=== PATIENT | male | born 1960 | race American Indian/Alaskan Native ===

== ENCOUNTER 2016-12-11 15:58 | Emergency (ER) | payer MEDICAID ==
[2016-12-11 15:59] VITALS: BMI 23.0
[2016-12-11 16:14] VITALS: TEMP 98.6; O2SAT 99
--- NOTE | 2016-12-11 16:35 | ED PDOC ---
Arrival/HPI - General Chief Complaint: Dental Pain Time Seen by Provider: 12/11/16 16:16 Historian: Patient - History of Present Illness Narrative History of Present Illness (Text): 12/11/16 16:30 55-year-old male presents today with left-sided dental pain. Patient states has been having pain for the past few days. Patient states he hasn't seen a dentist in a while. He denies any recent trauma or injury. Denies fevers or chills. Patient complaining of pain to the left upper and lower teeth into the left jaw. Patient denies trismus or drooling. Denies fevers or chills. No other complaints Time/Duration: Other (2 days) Symptom Onset: Gradual Symptom Course: Worsening Quality: Aching, Throbbing Severity Level: 6 Past Medical History - Provider Review Nursing Documentation Reviewed: Yes - Travel History Have you recently traveled outside [place] w/in the past 3 mons?: No - Tetanus Immunization Tetanus Immunization: Unknown - Cardiac Hx Cardiac Disorders: No - Pulmonary Hx Respiratory Disorders: No - Neurological Hx Neurological Disorder: No - HEENT Hx HEENT Disorder: No - Renal Hx Renal Disorder: No - Endocrine/Metabolic Hx Endocrine Disorders: No - Hematological/Oncological Hx Blood Disorders: No - Integumentary Hx Dermatological Disorder: No - Musculoskeletal/Rheumatological Hx Musculoskeletal Disorders: No - Gastrointestinal Hx Gastrointestinal Disorders: No - Genitourinary/Gynecological Hx Genitourinary Disorders: No - Psychiatric Hx Psychophysiologic Disorder: No Hx Substance Use: No - Anesthesia Hx Anesthesia: No Family/Social History - Physician Review Nursing Documentation Reviewed: Yes Family/Social History: Unknown Family HX Smoking Status: Light Smoker < 10 Cigarettes Daily Hx Alcohol Use: No Hx Substance Use: No Allergies/Home Meds Allergies/Adverse Reactions: Allergies No Known Allergies Allergy (Verified 12/11/16 16:11) Review of Systems - Review of Systems Constitutional: absent: Fatigue, Fevers ENT: Other (toothache). absent: Sore Throat, Sinus Congestion Respiratory: absent: SOB, Cough Cardiovascular: absent: Chest Pain, Palpitations Gastrointestinal: absent: Abdominal Pain, Nausea, Vomiting Skin: absent: Rash, Pruritis Neurological: absent: Headache, Dizziness Physical Exam Vital Signs Reviewed: Yes Vital Signs Temp Pulse Resp BP Pulse Ox 12/11/16 16:11 98.6 F 73 16 133/81 99 Temperature: Afebrile Blood Pressure: Normal Pulse: Regular Respiratory Rate: Normal Appearance: Positive for: Well-Appearing, Non-Toxic, Comfortable Pain Distress: None Mental Status: Positive for: Alert and Oriented X 3 - Systems Exam Head: Present: Atraumatic Conjunctiva: Present: Normal Ears: Present: Normal Mouth: Present: Moist Mucous Membranes, Normal Lips, Normal Tounge. No: Drooling, Trismus, Normal Teeth (poor dentition, multiple left upper dental fractures, + dental caries. ) Pharnyx: Present: Normal. No: ERYTHEMA, EXUDATE, TONSILS ENLARGED, Peritonsilar Swelling, Uvular Deviation, Muffled/Hoarse Voice, Strider, Soft Palate/Uvular Edema Nose (External): Present: Atraumatic Nose (Internal): Present: Normal Inspection Neck: Present: Normal Range of Motion Respiratory/Chest: Present: Clear to Auscultation, Good Air Exchange. No: Respiratory Distress, Accessory Muscle Use Cardiovascular: Present: Regular Rate and Rhythm, Normal S1, S2. No: Murmurs Upper Extremity: Present: Normal ROM Lower Extremity: Present: Normal ROM Neurological: Present: GCS=15, Speech Normal Skin: Present: Warm, Dry, Normal Color. No: Rashes Psychiatric: Present: Alert, Oriented x 3 Medical Decision Making ED Course and Treatment: 12/11/16 16:38 Patient is nontoxic well-appearing in no distress with stable vital signs No trismus or drooling, moist mucous membranes Amoxicillin Toradol tramadol Patient reassessment: Patient is feeling better after medications. I advised follow-up with the dentist within the next 2 days. I advised immediate return is symptoms worsen persist or if new concerning symptoms develop Patient verbalizes understanding of discharge instructions and need for immediate followup. Impression: Toothache Motrin every 6 hours as needed for pain Amoxicillin 1 tablet 3 times daily x 10 days tramadol; 1 tablet every 6 hours as needed for moderate to severe pain; may cause drowsiness Follow-up with the dentist within the next 2 days Follow up with the primary care physician within the next 2 days. Return immediately if symptoms worsen persist or if new concerning symptoms develop Disposition/Present on Arrival - Present on Arrival Any Indicators Present on Arrival: No History of DVT/PE: No History of Uncontrolled Diabetes: No Urinary Catheter: No History of Decub. Ulcer: No History Surgical Site Infection Following: None - Disposition Have Diagnosis and Disposition been Completed?: Yes Diagnosis: Toothache, Dental caries Disposition: HOME/ ROUTINE Disposition Time: 16:28 Patient Plan: Discharge Condition: GOOD Discharge Instructions (ExitCare): Toothache (ED), Dental Caries (ED) Additional Instructions: Motrin every 6 hours as needed for pain Amoxicillin 1 tablet 3 times daily x 10 days tramadol; 1 tablet every 6 hours as needed for moderate to severe pain; may cause drowsiness Follow-up with the dentist within the next 2 days Follow up with the primary care physician within the next 2 days. Return immediately if symptoms worsen persist or if new concerning symptoms develop Prescriptions: Amoxicillin 500 mg PO TID #30 tab Ibuprofen [Motrin] 600 mg PO Q6H PRN #20 tab PRN Reason: pain/fever reduction traMADol [Ultram] 50 mg PO Q6H PRN #8 tab PRN Reason: moderate to severe pain Referrals: Jose Tenorio DMD [Non-Staff] - Follow up with primary Forms: WORK NOTE
[2016-12-11 17:07] VITALS: BP 134/77; PULSE 65; RESP 17
== END 2016-12-11 17:08 | disposition home or self-care (01) ==
LOC: ED 15:58
DX: K02.9 Dental caries, unspecified (principal)
CPT/HCPCS: 96372; 99282; J1885

== ENCOUNTER 2017-03-15 04:58 | Emergency (ER) | payer MEDICAID ==
[2017-03-15 04:58] VITALS: BMI 23.0
[2017-03-15 05:18] VITALS: RESP 18; TEMP 98.3
--- NOTE | 2017-03-15 05:27 | ED PDOC ---
Arrival/HPI - General Chief Complaint: Back Pain Time Seen by Provider: 03/15/17 04:59 Historian: Patient - History of Present Illness Narrative History of Present Illness (Text): 03/15/17 05:23 56 year old male, with no significant past medical history presents to the emergency department complaining of lower back pain. 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 Patient denies any fever, chills, chest pain, shortness of breath, nausea, vomiting, diarrhea, urinary symptoms, neck pain, headache, dizziness, or any other complaints. Time/Duration: Other Symptom Onset: Sudden Symptom Course: Unchanged Activities at Onset: Light Context: Work Past Medical History - Provider Review Nursing Documentation Reviewed: Yes - Tetanus Immunization Tetanus Immunization: Unknown - Cardiac Hx Cardiac Disorders: No - Pulmonary Hx Respiratory Disorders: No - Neurological Hx Neurological Disorder: No - HEENT Hx HEENT Disorder: No - Renal Hx Renal Disorder: No - Endocrine/Metabolic Hx Endocrine Disorders: No - Hematological/Oncological Hx Blood Disorders: No - Integumentary Hx Dermatological Disorder: No - Musculoskeletal/Rheumatological Hx Musculoskeletal Disorders: No - Gastrointestinal Hx Gastrointestinal Disorders: No - Genitourinary/Gynecological Hx Genitourinary Disorders: No - Psychiatric Hx Psychophysiologic Disorder: No Hx Substance Use: No - Anesthesia Hx Anesthesia: No Family/Social History - Physician Review Nursing Documentation Reviewed: Yes Family/Social History: No Known Family HX Smoking Status: Light Smoker < 10 Cigarettes Daily Hx Alcohol Use: No Hx Substance Use: No Allergies/Home Meds Allergies/Adverse Reactions: Allergies No Known Allergies Allergy (Verified 03/15/17 05:14) Review of Systems - Physician Review All systems were reviewed & negative as marked: Yes - Review of Systems Constitutional: absent: Fevers, Other (Chills) Respiratory: absent: SOB Cardiovascular: absent: Chest Pain Gastrointestinal: absent: Diarrhea, Nausea, Vomiting Genitourinary Male: absent: Dysuria, Frequency, Hematuria Musculoskeletal: Back Pain (Lower back pain). absent: Neck Pain Neurological: absent: Headache, Dizziness Physical Exam Vital Signs Reviewed: Yes Vital Signs Temp Pulse Resp Pulse Ox 03/15/17 05:14 98.3 F 77 18 97 Temperature: Afebrile Pulse: Regular Respiratory Rate: Normal Appearance: Positive for: Well-Appearing, Non-Toxic, Comfortable Pain Distress: None Mental Status: Positive for: Alert and Oriented X 3 - Systems Exam Head: Present: Atraumatic, Normocephalic Pupils: Present: PERRL Extroacular Muscles: Present: EOMI Conjunctiva: Present: Normal Mouth: Present: Moist Mucous Membranes Neck: Present: Normal Range of Motion Respiratory/Chest: Present: Clear to Auscultation, Good Air Exchange. No: Respiratory Distress, Accessory Muscle Use Cardiovascular: Present: Regular Rate and Rhythm, Normal S1, S2. No: Murmurs Abdomen: Present: Normal Bowel Sounds. No: Tenderness, Distention, Peritoneal Signs Back: Present: Normal Inspection, Paraspinal Tenderness (Lower paraspinal tenderness). No: Midline Tenderness, Other (- Dorsal Spinal Tenderness) Upper Extremity: Present: Normal Inspection. No: Cyanosis, Edema Lower Extremity: Present: Normal Inspection. No: Edema Neurological: Present: GCS=15, CN II-XII Intact, Speech Normal Skin: Present: Warm, Dry, Normal Color. No: Rashes Psychiatric: Present: Alert, Oriented x 3, Normal Insight, Normal Concentration Medical Decision Making ED Course and Treatment: 03/15/17 05:23 Impression: 56 year old male present complaining of lower back pain that began after heavy lifting at work. Plan: -- Flexeril -- Toradol -- Reassess and disposition Progress Notes: - Medication Orders Current Medication Orders: Discontinued Medications Cyclobenzaprine HCl (Flexeril) 10 mg PO ONCE ONE Stop: 03/15/17 05:24 Last Admin: 03/15/17 05:58 Dose: 10 mg Ketorolac Tromethamine (Toradol) 60 mg IM ONCE ONE Stop: 03/15/17 05:24 Last Admin: 03/15/17 05:58 Dose: 60 mg - Scribe Statement The provider has reviewed the documentation as recorded by the Angelicaibdemond Montoya All medical record entries made by the Angelicaibdemond were at my direction and personally dictated by me. I have reviewed the chart and agree that the record accurately reflects my personal performance of the history, physical exam, medical decision making, and the department course for this patient. I have also personally directed, reviewed, and agree with the discharge instructions and disposition. Disposition/Present on Arrival - Present on Arrival Any Indicators Present on Arrival: No History of DVT/PE: No History of Uncontrolled Diabetes: No Urinary Catheter: No History of Decub. Ulcer: No History Surgical Site Infection Following: None - Disposition Have Diagnosis and Disposition been Completed?: Yes Diagnosis: Lumbar back sprain, Muscle strain, Muscle spasm of back Disposition: HOME/ ROUTINE Disposition Time: 06:03 Patient Plan: Discharge Patient Problems: Current Active Problems Problem Status Onset Lumbar back sprain Acute Muscle spasm of back Acute Muscle strain Acute Condition: GOOD Discharge Instructions (ExitCare): Muscle Strain (ED), Muscle Spasm (ED), Back Pain (ED) Additional Instructions: Rest/no strenuous physical activity/no heavy lifting/meds as prescribed/follow up with your doctor this week Prescriptions: Cyclobenzaprine [Cyclobenzaprine HCl] 10 mg PO TID PRN #15 tab PRN Reason: Muscle Spasm Naproxen [Naprosyn] 500 mg PO BID PRN #14 tab PRN Reason: Pain Naproxen [Naprosyn] 500 mg PO BID PRN #14 tab PRN Reason: Pain Forms: [facility] (Armenian), WORK NOTE
[2017-03-15 06:25] VITALS: BP 106/69; PULSE 75; O2SAT 99
== END 2017-03-15 06:24 | disposition home or self-care (01) ==
LOC: ED 04:58
DX: S33.5XXA Sprain of ligaments of lumbar spine, initial encounter (principal); X50.0XXA Overexertion from strenuous movement or load, initial encounter; Y93.89 Activity, other specified; Y92.89 Other specified places as the place of occurrence of the external cause; Y99.8 Other external cause status
CPT/HCPCS: 96372; 99282; J1885

== ENCOUNTER 2017-07-28 12:17 | Inpatient (IN) | payer MEDICAID ==
[2017-07-28 12:30] VITALS: BMI 20.9
[2017-07-28] MEDS ORDERED: Morphine 4 mg/ml ISec IVP STA ×2 (12:36→18:31)
[2017-07-28] MEDS ORDERED: Sodium Chloride 0.9% 1,000 ML IV STA (12:36)
--- NOTE | 2017-07-28 12:39 | ED PDOC ---
Arrival/HPI - General Time Seen by Provider: 07/28/17 12:25 Historian: Patient, Spouse - History of Present Illness Narrative History of Present Illness (Text): 07/28/17 12:34 A 56 year old male with no significant past medical history presents to the emergency department complaining of chest pain, vomiting, and dry heaves. The patient states that at 19:00 last night, after he ate rice and beans, he began to experience dry heaves and vomiting. He notes that this morning he began to experience the chest pain. As per the , she became worried and called EMS. The patient admits to smoking and ETOH use. The patient denies fevers, chills, headache, dizziness, shortness of breath, dyspnea on exertion, cough, abdominal pain, diarrhea, back pain, neck pain, urinary/bowel changes, or any other complaint. Time/Duration: Other (Last night) Symptom Onset: Sudden Symptom Course: Unchanged Activities at Onset: Rest, Light Context: Home Past Medical History - Provider Review Nursing Documentation Reviewed: Yes - Tetanus Immunization Tetanus Immunization: Unknown - Cardiac Hx Cardiac Disorders: No - Pulmonary Hx Respiratory Disorders: No - Neurological Hx Neurological Disorder: No - HEENT Hx HEENT Disorder: No - Renal Hx Renal Disorder: No - Endocrine/Metabolic Hx Endocrine Disorders: No - Hematological/Oncological Hx Blood Disorders: No - Integumentary Hx Dermatological Disorder: No - Musculoskeletal/Rheumatological Hx Musculoskeletal Disorders: No - Gastrointestinal Hx Gastrointestinal Disorders: No - Genitourinary/Gynecological Hx Genitourinary Disorders: No - Psychiatric Hx Psychophysiologic Disorder: No Hx Substance Use: No - Anesthesia Hx Anesthesia: No Family/Social History - Physician Review Nursing Documentation Reviewed: Yes Family/Social History: No Known Family HX Smoking Status: Light Smoker < 10 Cigarettes Daily Hx Alcohol Use: No Hx Substance Use: No Allergies/Home Meds Allergies/Adverse Reactions: Allergies No Known Allergies Allergy (Verified 03/15/17 05:14) Review of Systems - Physician Review All systems were reviewed & negative as marked: Yes - Review of Systems Constitutional: absent: Fevers, Night Sweats Respiratory: absent: SOB, Cough Cardiovascular: absent: Chest Pain, DANIELLE Gastrointestinal: Nausea, Vomiting. absent: Abdominal Pain, Stool Changes Genitourinary Male: absent: Urinary Output Changes Musculoskeletal: absent: Back Pain, Neck Pain Neurological: absent: Headache, Dizziness Physical Exam Vital Signs Reviewed: Yes Vital Signs Temp Pulse Resp BP Pulse Ox 07/28/17 15:05 64 19 144/86 98 07/28/17 12:27 98.3 F 63 18 147/94 H 100 Temperature: Afebrile Blood Pressure: Hypertensive Pulse: Regular Respiratory Rate: Normal Appearance: Positive for: Well-Appearing, Non-Toxic, Comfortable Pain Distress: None Mental Status: Positive for: Alert and Oriented X 3 - Systems Exam Head: Present: Atraumatic, Normocephalic Pupils: Present: PERRL Extroacular Muscles: Present: EOMI Conjunctiva: Present: Normal Mouth: Present: Moist Mucous Membranes Neck: Present: Normal Range of Motion Respiratory/Chest: Present: Clear to Auscultation, Good Air Exchange. No: Respiratory Distress, Accessory Muscle Use Cardiovascular: Present: Regular Rate and Rhythm, Normal S1, S2. No: Murmurs Abdomen: Present: Normal Bowel Sounds. No: Tenderness, Distention, Peritoneal Signs Back: Present: Normal Inspection Upper Extremity: Present: Normal Inspection. No: Cyanosis, Edema Lower Extremity: Present: Normal Inspection. No: Edema Neurological: Present: GCS=15, CN II-XII Intact, Speech Normal Skin: Present: Warm, Dry, Normal Color. No: Rashes Psychiatric: Present: Alert, Oriented x 3, Normal Insight, Normal Concentration Medical Decision Making ED Course and Treatment: 07/28/17 12:40 Impression: A 56 year old male presents to the emergency department complaining of dry heaving, vomiting and chest pain. Plan: -- EKG -- Chest X-ray -- Labs -- Morphine, Zofran, and IV Fluids -- Reassess and disposition Prior Visits: Notes and results from previous visits were reviewed. Patient was last seen in the emergency department on 03/15/17. The patient was seen in the emergency department for a complaint of lower back pain. The patient was discharged home. Progress Notes: EKG: Ordered, reviewed, and independently interpreted the EKG. Rate : 68 BPM Rhythm : NSR Interpretation : Left axis deviation. Old septal infarct. CHEST X-RAY Dictator : Valentina Tran MD Report Date : 07/28/2017 13:03:25 IMPRESSION: No active pulmonary disease. 07/28/17 17:36 All tests performed are normal. Patient states he is feeling better but complains of nausea. Zofran administered. After 15 minutes patient attempted to drink water and states he felt incredible esophageal pain. Will admit to hospitalist for possible GI evaluation and continued IV hydration. Dr. Kody hernández. 07/28/17 18:[address] Gates, Admit to his service - Lab Interpretations Lab Results: 07/28/17 13:35 07/28/17 14:05 Lab Results 07/28/17 17:00: Urine Opiates Screen Positive H, Urine Methadone Screen Negative , Ur Barbiturates Screen Negative, Ur Phencyclidine Scrn Negative, Ur Amphetamines Screen Negative, U Benzodiazepines Scrn Negative, U Oth Cocaine Metabols Negative, U Cannabinoids Screen Positive H 07/28/17 16:15: PT 13.2 H, INR 1.15 H 07/28/17 14:05: Alcohol, Quantitative < 10 07/28/17 14:05: Sodium 146, Potassium 3.9, Chloride 106, Carbon Dioxide 28, Anion Gap 16, BUN 10, Creatinine 0.8, Est GFR ( Amer) > 60, Est GFR (Non- Af Amer) > 60, Random Glucose 124 H, Calcium 9.9, Total Bilirubin 0.6, Direct Bilirubin 0.5 H, AST 30, ALT 20, Alkaline Phosphatase 74, Lactate Dehydrogenase 600, Total Creatine Kinase 187, Troponin I < 0.01, Total Protein 9.4 H, Albumin 4.7, Globulin 4.8, Albumin/Globulin Ratio 1.0 L, Lipase 67 07/28/17 13:35: WBC 10.3 D, RBC 4.89, Hgb 14.8, Hct 43.6, MCV 89.2, MCH 30.3, MCHC 33.9, RDW 12.2, Plt Count 192, MPV 11.1 H, Gran % 81.0 H, Lymph % (Auto) 14.7 L, [place] % (Auto) 4.2, Eos % (Auto) 0.0 L, Baso % (Auto) 0.1, Gran # 8.38 H , Lymph # 1.5, [place] # 0.4, Eos # 0.0, Baso # 0.01 I have reviewed the lab results: Yes - RAD Interpretation Radiology Orders: 07/28/17 12:36 CXR [CHEST PORTABLE] [RAD] Stat - EKG Interpretation Interpreted by ED Physician: Yes Type: 12 lead EKG - Medication Orders Current Medication Orders: Discontinued Medications Sodium Chloride (Sodium Chloride 0.9%) 1,000 mls @ 999 mls/hr IV .Q1H1M STA Stop: 07/28/17 13:36 Last Admin: 07/28/17 14:10 Dose: 999 mls/hr eMAR Start Stop Document 07/28/17 14:10 HI (Rec: 07/28/17 14:10 HI [id number]) Intravenous Solution Start Date 07/28/17 Start Time 14:10 Morphine Sulfate (Morphine) 4 mg IVP STAT STA Stop: 07/28/17 12:37 Last Admin: 07/28/17 14:10 Dose: 4 mg MAR Pain Assessment Document 07/28/17 14:10 HI (Rec: 07/28/17 14:10 HI [id number]) Pain Reassessment Is this a pain reassessment? No Presence of Pain Presence of Pain Yes Location Pain Location Body Site Abdomen IVP Administration Document 07/28/17 14:10 HI (Rec: 07/28/17 14:10 HI [id number]) Charges for Administration # of IVP Administrations 1 Re-Assess: MAR Pain Assessment Document 07/28/17 15:10 HI (Rec: 07/28/17 17:09 HI [id number]) Pain Reassessment Is this a pain reassessment? Yes Sleep Is patient sleeping during reassessment? No Presence of Pain Presence of Pain No Ondansetron HCl (Zofran Inj) 4 mg IVP STAT STA Stop: 07/28/17 12:37 Last Admin: 07/28/17 14:10 Dose: 4 mg IVP Administration Document 07/28/17 14:10 HI (Rec: 07/28/17 14:10 HI [id number]) Charges for Administration # of IVP Administrations 1 Ondansetron HCl (Zofran Odt) 8 mg PO STAT STA Stop: 07/28/17 16:55 Last Admin: 07/28/17 17:09 Dose: 8 mg - Scribe Statement The provider has reviewed the documentation as recorded by the Thaddeus Singh Provider Scribe Attestation: All medical record entries made by the Scribe were at my direction and personally dictated by me. I have reviewed the chart and agree that the record accurately reflects my personal performance of the history, physical exam, medical decision making, and the department course for this patient. I have also personally directed, reviewed, and agree with the discharge instructions and disposition. Disposition/Present on Arrival - Present on Arrival Any Indicators Present on Arrival: No History of DVT/PE: No History of Uncontrolled Diabetes: No Urinary Catheter: No History Surgical Site Infection Following: None - Disposition Have Diagnosis and Disposition been Completed?: Yes Diagnosis: Chest pain, Esophagitis Disposition: HOME/ ROUTINE Disposition Time: 18:11 Patient Plan: Admission, Telemetry Condition: IMPROVED Discharge Instructions (ExitCare): Chest Pain (ED) Referrals: PCP,NO [Primary Care Provider] - Follow up with primary
--- NOTE | 2017-07-28 13:05 | RAD ---
HISTORY: Chest Pain COMPARISON: No prior. FINDINGS: LUNGS: The lungs are well inflated and clear. PLEURA: No significant pleural effusion identified, no pneumothorax apparent. CARDIOVASCULAR: Normal. OSSEOUS STRUCTURES: No significant abnormalities. VISUALIZED UPPER ABDOMEN: Normal. OTHER FINDINGS: None. IMPRESSION: No active pulmonary disease.
[2017-07-28 14:04] LABS: BASO # 0.01 K/mm3 (0.0-2.0); BASO % 0.1 % (0.0-3.0); GRAN # 8.38 (1.4-6.5); HEMOGLOBIN 14.8 g/dL (14.0-18.0); LYMPH # 1.5 (1.2-3.4); LYMPH % 14.7 % (22.0-35.0); MEAN CELL VOLUME 89.2 fl (80.0-105.0); MEAN CORPUSCULAR HEMOGLOBIN 30.3 pg (25.0-35.0); MEAN CORPUSCULAR HGB CONC 33.9 g/dl (31.0-37.0); MEAN PLATELET VOLUME 11.1 fl (7.0-11.0); MONO # 0.4 (0.1-0.6); MONO % 4.2 % (1.0-6.0); RBC 4.89 10^6/uL (3.5-6.1); RED CELL DISTRIBUTION WIDTH 12.2 % (11.5-14.5); WHITE BLOOD COUNT 10.3 10^3/ul (4.5-11.0)
[2017-07-28 14:33] LABS: ALBUMIN 4.7 g/dL (3.0-4.8); ALT/SGPT 20 U/L (7-56); AST/SGOT 30 U/L (17-59); BLOOD UREA NITROGEN 10 mg/dL (7-21); CALCIUM 9.9 mg/dL (8.4-10.5); GFR AFRICAN-AMERICAN > 60; GFR NON-AFRICAN AMERICAN > 60; LIPASE 67 U/L (23-300)
[2017-07-28 14:40] LABS: BILIRUBIN,DIRECT 0.5 mg/dL (0.0-0.4)
[2017-07-28 14:44] LABS: TROPONIN I < 0.01 ng/mL
[2017-07-28 16:39] LABS: INR 1.15 (0.93-1.08); PROTHROMBIN TIME 13.2 SECONDS (9.4-12.5)
[2017-07-28 17:49] LABS: BARBITURATES, UR NEGATIVE (NEGATIVE); BENZODIAZEPINES, UR NEGATIVE (NEGATIVE); PHENCYCLIDINE, UR NEGATIVE (NEGATIVE)
[2017-07-28 17:53] LABS: OPIATES, UR POSITIVE (NEGATIVE)
[2017-07-28] MEDS ORDERED: Morphine 2 mg/ml ISec IVP PRN (18:43)
--- NOTE | 2017-07-28 18:59 | CP.PCM.HP ---
History of Present Illness - History of Present Illness History of Present Illness: CC: Intractable nausea, vomiting; chest pain Pt is a 56 yo M with no significant past medical history presents to [facility] due to intractable nausea and vomiting for the past day. Pt states he ate rice and beans last night around 7 pm when his symptoms began and has not been able to tolerate any oral intake since then. Pt has had multiple NBNB episodes of vomiting since last night. Pt states that his family ate the same meal and have been asymptomatic. Pt denies any recent sick contacts. Pt states he also has epigastric pain that is sharp and radiates to his sternum and right side of his chest. Pt denies any diarrhea or constipation. Pt denies any past occurrences. pt also complains of alternating fever and chills. Pt denied shortness of breath , headache, dizziness, dysuria, polyuria, hemoptysis, melena, or hematochezia. PMH: denied PSH: denied All: NKDA FHx: Non-contributory SH: 2 packs/week for past 30 yrs, social EtOH use, denied illicit drug use PMD: None Present on Admission - Present on Admission Any Indicators Present on Admission: No Review of Systems - Review of Systems Review of Systems: 12 point ROS reviewed and is negative other than what is stated in HPI. Past Patient History - Tetanus Immunizations Tetanus Immunization: Unknown - Past Social History Smoking Status: Light Smoker < 10 Cigarettes Daily - CARDIAC Hx Cardiac Disorders: No - PULMONARY Hx Respiratory Disorders: No - NEUROLOGICAL Hx Neurological Disorder: No - HEENT Hx HEENT Problems: No - RENAL Hx Chronic Kidney Disease: No - ENDOCRINE/METABOLIC Hx Endocrine Disorders: No - HEMATOLOGICAL/ONCOLOGICAL Hx Blood Disorders: No - INTEGUMENTARY Hx Dermatological Problems: No - MUSCULOSKELETAL/RHEUMATOLOGICAL Hx Musculoskeletal Disorders: No - GASTROINTESTINAL Hx Gastrointestinal Disorders: No - GENITOURINARY/GYNECOLOGICAL Hx Genitourinary Disorders: No - PSYCHIATRIC Hx Psychophysiologic Disorder: No Hx Substance Use: No - SURGICAL HISTORY Hx Surgeries: No - ANESTHESIA Hx Anesthesia: No Meds Allergies/Adverse Reactions: Allergies Allergy/AdvReac Type Severity Reaction Status Date / Time No Known Allergies Allergy Verified 03/15/17 05:14 Physical Exam - Constitutional Appears: In Acute Distress - Head Exam Head Exam: NORMAL INSPECTION - Eye Exam Eye Exam: Normal appearance - ENT Exam ENT Exam: Mucous Membranes Dry - Neck Exam Neck exam: Positive for: Normal Inspection - Respiratory Exam Respiratory Exam: Clear to Auscultation Bilateral. absent: Rales, Rhonchi, Wheezes, Respiratory Distress - Cardiovascular Exam Cardiovascular Exam: RRR, +S1, +S2. absent: Diastolic murmur, Gallop, Rubs, Systolic Murmur - GI/Abdominal Exam GI & Abdominal Exam: Guarding, Tenderness. absent: Distended, Rebound Additional comments: LLQ, epigastric - Extremities Exam Extremities exam: Positive for: normal inspection - Back Exam Back exam: NORMAL INSPECTION - Neurological Exam Neurological exam: Alert, Oriented x3 - Psychiatric Exam Psychiatric exam: Normal Affect, Normal Mood - Skin Skin Exam: Dry, Intact, Normal Color, Warm Results - Vital Signs Recent Vital Signs: Last Vital Signs Temp 98.3 F 07/28/17 12:27 Pulse 64 07/28/17 15:05 Resp 19 07/28/17 15:05 BP 144/86 07/28/17 15:05 Pulse Ox 98 07/28/17 15:05 - Labs Result Diagrams: 07/28/17 13:35 07/28/17 14:05 Assessment & Plan - Assessment and Plan (Free Text) Assessment: 56 yo M with no significant past medical history admitted for evaluation and treatment for intractable nausea/vomiting and CP r/o ACS. Plan: 1. Intractable nausea/vomiting - Afebrile, no leukocytosis - CT abdomen ordered - UDS positive for opiates and marijuana - Possibly 2/2 illicit drug withdrawal - Ativan 1q6 prn and tylenol for pain - Zofran for nausea - NPO - NS at 100 ml/hr 2. CP r/o ACS - Likely 2/2 intractable vomiting - CXR negative - EKG shows NSR, LAD, septal infarct age undetermined - Troponin negative x1, trend x2 - TSH low-normal - F/u Lipids, A1c, Free T4 GI/DVT PPx - Protonix - Lovenox Pt discussed in detail with Dr. Gonzalez. Alphonso Gonzalez, PGY1
[2017-07-28] MEDS ORDERED: Morphine 2 mg/ml ISec ONE (19:29)
[2017-07-28] MEDS: Sodium Chloride 0.9% 1,000 ML IV SCH (19:34)
--- NOTE | 2017-07-28 22:36 | CT ---
EXAM: CT Abdomen and Pelvis Without Intravenous Contrast EXAM DATE/TIME: 07/28/2017 7:46 PM CLINICAL HISTORY: 56 years old, male; Pain; Abdominal pain TECHNIQUE: Axial computed tomography images of the abdomen and pelvis without intravenous contrast. All CT scans at this facility use one or more dose reduction techniques, viz.: automated exposure control; ma/kV adjustment per patient size (including targeted exams where dose is matched to indication; i.e. head); or iterative reconstruction technique. Coronal and sagittal reformatted images were created and reviewed. COMPARISON: There are no prior studies for comparison. FINDINGS: Limitations: Lack of intravenous contrast limits evaluation of the abdomen and pelvis. Lower thorax: Heart size is normal. There is dependent atelectasis at the lung bases. ABDOMEN: Liver: unremarkable Gallbladder and bile ducts: unremarkable Pancreas: unremarkable Spleen: unremarkable Adrenals: unremarkable Kidneys and ureters: There is a small nonobstructing left renal stone. Kidneys and ureters are otherwise unremarkable. Stomach and bowel: Stomach is incompletely distended which accentuates the gastric wall.Bowel rotation is normal. There are mildly distended small bowel loops in the left upper quadrant. There is a small amount of fluid and air in remaining small bowel. There is no obstruction. Ileocecal region is unremarkable.Appendix and terminal ileum are unremarkable. Colon is incompletely distended which limits evaluation. Appendix: See stomach and bowel PELVIS: Bladder: unremarkable Reproductive: Seminal vesicles and prostate are unremarkable. ABDOMEN and PELVIS: Intraperitoneal space: There is no free air or free fluid. Bones/joints: There is minimal spondylosis. There is partial ankylosis of the sacroiliac joints. Soft tissues: unremarkable Vasculature: There are calcified phleboliths. There are vascular calcifications. Lymph nodes: There is no pathologic adenopathy. IMPRESSION: Nonobstructing left renal stone, no ureteral stones or hydronephrosis; mildly distended small bowel loops in the left upper quadrant suggesting focal ileus, obstruction; no CT findings of appendicitis Additional nonemergent findings as described above.
[2017-07-29 06:29] LABS: MEAN CELL VOLUME 89.3 fl (80.0-105.0); MEAN CORPUSCULAR HEMOGLOBIN 29.3 pg (25.0-35.0); MEAN CORPUSCULAR HGB CONC 32.8 g/dl (31.0-37.0); MEAN PLATELET VOLUME 10.8 fl (7.0-11.0); RBC 4.2 10^6/uL (3.5-6.1); RED CELL DISTRIBUTION WIDTH 12.4 % (11.5-14.5)
[2017-07-29 06:43] LABS: HEMOGLOBIN 12.3 g/dL (14.0-18.0)
[2017-07-29 06:59] LABS: ALBUMIN 3.8 g/dL (3.0-4.8); ALT/SGPT 18 U/L (7-56); AST/SGOT 32 U/L (17-59); BLOOD UREA NITROGEN 11 mg/dL (7-21); CALCIUM 8.4 mg/dL (8.4-10.5); GFR AFRICAN-AMERICAN > 60; GFR NON-AFRICAN AMERICAN > 60
[2017-07-29] MEDS: Sodium Chloride 0.9% 1,000 ML IV SCH ×2 (08:57→14:42)
[2017-07-29] MEDS ORDERED: Potassium Chloride 20 mEq ER Tab PO STA (09:34)
[2017-07-29] MEDS ORDERED: Enoxaparin 30 mg Syringe SC SCH (10:00)
[2017-07-29 15:36] VITALS: PULSE 60; RESP 20
--- NOTE | 2017-07-29 15:41 | CP.PCM.DIS ---
Provider - Provider Date of Admission: 07/28/17 18:11 Attending physician: Mary Sandra MD Primary care physician: NO PRIMARY CARE PROVIDER Time Spent in preparation of Discharge (in minutes): 45 Hospital Course - Lab Results Lab Results: Most Recent Lab Values WBC 8.0 10^3/ul (4.5-11.0) D 07/29/17 05:30 RBC 4.20 10^6/uL (3.5-6.1) 07/29/17 05:30 Hgb 12.3 g/dL (14.0-18.0) L D 07/29/17 05:30 Hct 37.5 % (42.0-52.0) L 07/29/17 05:30 MCV 89.3 fl (80.0-105.0) 07/29/17 05:30 MCH 29.3 pg (25.0-35.0) 07/29/17 05:30 MCHC 32.8 g/dl (31.0-37.0) 07/29/17 05:30 RDW 12.4 % (11.5-14.5) 07/29/17 05:30 Plt Count 163 10^3/uL (120.0-450.0) 07/29/17 05:30 MPV 10.8 fl (7.0-11.0) 07/29/17 05:30 Gran % 81.0 % (50.0-68.0) H 07/28/17 13:35 Lymph % (Auto) 14.7 % (22.0-35.0) L 07/28/17 13:35 Lau[place] % (Auto) 4.2 % (1.0-6.0) 07/28/17 13:35 Eos % (Auto) 0.0 % (1.5-5.0) L 07/28/17 13:35 Baso % (Auto) 0.1 % (0.0-3.0) 07/28/17 13:35 Gran # 8.38 (1.4-6.5) H 07/28/17 13:35 Lymph # 1.5 (1.2-3.4) 07/28/17 13:35 Laurens # 0.4 (0.1-0.6) 07/28/17 13:35 Eos # 0.0 (0.0-0.7) 07/28/17 13:35 Baso # 0.01 K/mm3 (0.0-2.0) 07/28/17 13:35 PT 13.2 SECONDS (9.4-12.5) H 07/28/17 16:15 INR 1.15 (0.93-1.08) H 07/28/17 16:15 Sodium 141 mmol/L (132-148) 07/29/17 05:30 Potassium 3.4 mmol/L (3.6-5.0) L 07/29/17 05:30 Chloride 108 mmol/L (98-107) H 07/29/17 05:30 Carbon Dioxide 26 mmol/L (21-33) 07/29/17 05:30 Anion Gap 11 (10-20) 07/29/17 05:30 BUN 11 mg/dL (7-21) 07/29/17 05:30 Creatinine 0.7 mg/dl (0.8-1.5) L 07/29/17 05:30 Est GFR ( Amer) > 60 07/29/17 05:30 Est GFR (Non-Af Amer) > 60 07/29/17 05:30 Random Glucose 83 mg/dL (70-110) 07/29/17 05:30 Hemoglobin A1c 5.3 % (4.2-6.5) 07/28/17 21:54 Calcium 8.4 mg/dL (8.4-10.5) 07/29/17 05:30 Phosphorus 2.6 mg/dL (2.5-4.5) 07/28/17 14:05 Magnesium 2.0 mg/dL (1.7-2.2) 07/28/17 14:05 Total Bilirubin 0.6 mg/dL (0.2-1.3) 07/29/17 05:30 Direct Bilirubin 0.5 mg/dL (0.0-0.4) H 07/28/17 14:05 AST 32 U/L (17-59) 07/29/17 05:30 ALT 18 U/L (7-56) 07/29/17 05:30 Alkaline Phosphatase 57 U/L (38-126) 07/29/17 05:30 Lactate Dehydrogenase 600 U/L (333-699) 07/28/17 14:05 Total Creatine Kinase 187 U/L (35-230) 07/28/17 14:05 Troponin I < 0.01 ng/mL 07/29/17 05:30 Total Protein 7.5 g/dL (5.8-8.3) 07/29/17 05:30 Albumin 3.8 g/dL (3.0-4.8) 07/29/17 05:30 Globulin 3.7 gm/dL 07/29/17 05:30 Albumin/Globulin Ratio 1.0 (1.1-1.8) L 07/29/17 05:30 Triglycerides 69 mg/dL (35-160) 07/28/17 14:05 Cholesterol 219 mg/dL (130-200) H 07/28/17 14:05 LDL Cholesterol Direct 144 mg/dL (0-129) H 07/28/17 14:05 HDL Cholesterol 49 mg/dL (29-60) 07/28/17 14:05 Lipase 67 U/L (23-300) 07/28/17 14:05 Free T4 1.00 ng/dL (0.78-2.19) 07/28/17 21:54 TSH 3rd Generation 0.59 mIU/mL (0.46-4.68) 07/28/17 18:12 Urine Opiates Screen Positive (NEGATIVE) H 07/28/17 17:00 Urine Methadone Screen Negative (NEGATIVE) 07/28/17 17:00 Ur Barbiturates Screen Negative (NEGATIVE) 07/28/17 17:00 Ur Phencyclidine Scrn Negative (NEGATIVE) 07/28/17 17:00 Ur Amphetamines Screen Negative (NEGATIVE) 07/28/17 17:00 U Benzodiazepines Scrn Negative (NEGATIVE) 07/28/17 17:00 U Oth Cocaine Metabols Negative (NEGATIVE) 07/28/17 17:00 U Cannabinoids Screen Positive (NEGATIVE) H 07/28/17 17:00 Alcohol, Quantitative < 10 mg/dL (0-10) 07/28/17 14:05 - Hospital Course Hospital Course: Pt is a 56 yo M with no significant past medical history [place] [facility] due to intractable nausea and vomiting for the past day. Pt stated he ate rice and beans the night before admission around 7 pm when his symptoms began and has not been able to tolerate any oral intake since then. Pt had multiple NBNB episodes of vomiting. Pt stated that his family ate the same meal and have been asymptomatic. Pt denied any recent sick contacts. Pt stated he also had epigastric pain that is sharp and radiates to his sternum and right side of his chest. Pt denies any diarrhea or constipation. Pt was admitted for intractable nausea and vomiting. CP radiated from epigastric region and was likely 2/2 to GERD. Troponins were trended and were negative x3 and EKG showed no ST-T wave elevations. ACS was ruled out. Cholesterol was found to be elevated on lipid panel. Pt ASCVD 10 yr risk score is 13.5%. Lipitor was started. HgbA1c and TSH was within normal limits. CT abdomen pelvis showed dilated loops of small bowel consistent with ileus. Electrolytes were monitored and repleted as needed. Today , pt was seen and examined at bedside. As patient nausea and vomiting had resolved and was tolerating diet, he was discharged. Pt was advised to follow up with PMD. He was given a prescription for Lipitor due to elevated cholesterol and advised to have lab work done in 1 month to assess liver function. Pt was advised to cease all illicit drug use. Pt advised to advance diet slowly as tolerated. Discharge Diagnosis 1. Gastroenteritis 2. Hyperlipidemia Discharge Medications - Lipitor 40 mg PO DIN #30 - Zofran 4 mg PO Q6H #10 - Protonix 40 mg PO daily #30 Discharge Exam - Head Exam Head Exam: NORMAL INSPECTION - Eye Exam Eye Exam: Normal appearance - ENT Exam ENT Exam: Normal Exam - Neck Exam Neck exam: Normal Inspection - Respiratory Exam Respiratory Exam: Clear to PA & Lateral. absent: Accessory Muscle Use, Rales, Rhonchi, Wheezes, Respiratory Distress - Cardiovascular Exam Cardiovascular Exam: RRR, +S1, +S2. absent: Diastolic murmur, Gallop, Rubs, Systolic Murmur - GI/Abdominal Exam GI & Abdominal Exam: Soft. absent: Distended, Guarding, Rebound, Tenderness - Extremities Exam Extremities exam: normal inspection - Back Exam Back exam: NORMAL INSPECTION - Neurological Exam Neurological exam: Alert, Oriented x3 - Psychiatric Exam Psychiatric exam: Normal Affect, Normal Mood - Skin Skin Exam: Dry, Intact, Normal Color, Warm Discharge Plan - Discharge Medications Prescriptions: Atorvastatin [Lipitor] 40 mg PO DIN #30 tab Ondansetron HCl [Zofran] 4 mg PO Q6H #10 tablet Pantoprazole Sodium [Protonix] 40 mg PO DAILY #30 ect - Follow Up Plan Condition: IMPROVED Disposition: HOME/ ROUTINE Additional Instructions: 1. Follow up with PMD within 1 week for repeat lab work Monitor blood pressure, liver function, lipid panel 2. Due to elevated cholesterol, take Lipitor as prescribed 3. Take protonix daily to prevent acid reflux 4. Advance diet slowly 5. May take Zofran as needed for nausea 6. Return to ED if symptoms worsen Referrals: PCP,NO [Primary Care Provider] -
[2017-07-29 18:05] VITALS: BP 143/84; TEMP 97.9; O2SAT 100
--- NOTE | 2017-07-29 20:45 | CARD ---
APPROVED REPORT EKG Measurement Heart [id number] <Conclusion> Normal sinus rhythm Left axis deviation Septal infarct, age undetermined Abnormal ECG
== END 2017-07-29 18:22 | disposition home or self-care (01) | DRG 182 ==
LOC: ED 12:17 → ERH 18:11 → 3RNO 20:25
PROVIDERS: ADMIT Internal Medicine; ATTEND Internal Medicine
DX: K21.0 Gastro-esophageal reflux disease with esophagitis (principal); K56.7 Ileus, unspecified; E78.00 Pure hypercholesterolemia, unspecified; E78.5 Hyperlipidemia, unspecified; K52.9 Noninfective gastroenteritis and colitis, unspecified; F17.200 Nicotine dependence, unspecified, uncomplicated

== ENCOUNTER 2017-09-30 07:46 | Emergency (ER) | payer MEDICAID ==
[2017-09-30 08:05] VITALS: BP 118/75; PULSE 66; RESP 18; TEMP 98.2; O2SAT 99
[2017-09-30 08:55] VITALS: BMI 23.7
--- NOTE | 2017-09-30 09:24 | ED PDOC ---
Arrival/HPI - General Chief Complaint: Dental Pain Time Seen by Provider: 09/30/17 09:08 Historian: Patient - History of Present Illness Narrative History of Present Illness (Text): 09/30/17 09:20 56yo male with no PMhx present with complaint of left sided upper and lower gum pain/swelling for days now. Patient reports multiple history of same complaint and has been seen here for same complaint in the past. States he have not had time to see a Dentist yet, but plan to see one soon. He did not take any medication for the pain. Denies fever, chills, any other complaint. Past Medical History - Provider Review Nursing Documentation Reviewed: Yes - Tetanus Immunization Tetanus Immunization: Unknown - Cardiac Hx Cardiac Disorders: No - Pulmonary Hx Respiratory Disorders: No - Neurological Hx Neurological Disorder: No - HEENT Hx HEENT Disorder: No - Renal Hx Renal Disorder: No - Endocrine/Metabolic Hx Endocrine Disorders: No - Hematological/Oncological Hx Blood Disorders: No - Integumentary Hx Dermatological Disorder: No - Musculoskeletal/Rheumatological Hx Musculoskeletal Disorders: No Hx Falls: No - Gastrointestinal Hx Gastrointestinal Disorders: No - Genitourinary/Gynecological Hx Genitourinary Disorders: No - Psychiatric Hx Psychophysiologic Disorder: No Hx Substance Use: No - Anesthesia Hx Anesthesia: No Family/Social History - Physician Review Nursing Documentation Reviewed: Yes Family/Social History: Unknown Family HX Smoking Status: Former Smoker Hx Alcohol Use: No Hx Substance Use: No Allergies/Home Meds Allergies/Adverse Reactions: Allergies No Known Allergies Allergy (Verified 09/30/17 08:57) Review of Systems - Physician Review All systems were reviewed & negative as marked: Yes - Review of Systems Constitutional: Normal Eyes: Normal ENT: Other (Gum pain) Respiratory: Normal Cardiovascular: Normal Gastrointestinal: Normal Genitourinary Male: Normal Musculoskeletal: Normal Skin: Normal Neurological: Normal Endocrine: Normal Hemo/Lymphatic: Normal Psychiatric: Normal Physical Exam Vital Signs Reviewed: Yes Vital Signs Temp Pulse Resp BP Pulse Ox 09/30/17 08:05 98.2 F 66 18 118/75 99 Temperature: Afebrile Blood Pressure: Normal Pulse: Regular Respiratory Rate: Normal Appearance: Positive for: Well-Appearing, Non-Toxic, Comfortable Pain Distress: None Mental Status: Positive for: Alert and Oriented X 3 - Systems Exam Head: Present: Atraumatic, Normocephalic Pupils: Present: PERRL Extroacular Muscles: Present: EOMI Conjunctiva: Present: Normal Mouth: Present: Moist Mucous Membranes. No: Normal Teeth (Poor dentition in general. Multiple missing tooth. Left upper and lower molar and premolar missing. Mild gum swelling of the area noted.) Neck: Present: Normal Range of Motion Respiratory/Chest: Present: Clear to Auscultation, Good Air Exchange. No: Respiratory Distress, Accessory Muscle Use Cardiovascular: Present: Regular Rate and Rhythm, Normal S1, S2. No: Murmurs Abdomen: Present: Normal Bowel Sounds. No: Tenderness, Distention, Peritoneal Signs Back: Present: Normal Inspection Upper Extremity: Present: Normal Inspection. No: Cyanosis, Edema Lower Extremity: Present: Normal Inspection. No: Edema Neurological: Present: GCS=15, CN II-XII Intact, Speech Normal Skin: Present: Warm, Dry, Normal Color. No: Rashes Psychiatric: Present: Alert, Oriented x 3, Normal Insight, Normal Concentration Medical Decision Making - Medication Orders Current Medication Orders: Discontinued Medications Amoxicillin (Amoxil 500 Mg Cap) 500 mg PO STAT STA PRN Reason: Protocol Stop: 09/30/17 09:12 Tramadol HCl (Ultram) 50 mg PO STAT STA Stop: 09/30/17 09:13 Disposition/Present on Arrival - Present on Arrival Any Indicators Present on Arrival: No History of DVT/PE: No History of Uncontrolled Diabetes: No Urinary Catheter: No History of Decub. Ulcer: No History Surgical Site Infection Following: Orthopedic Procedures - Disposition Have Diagnosis and Disposition been Completed?: Yes Diagnosis: Dental abscess Disposition: HOME/ ROUTINE Disposition Time: 09:25 Patient Plan: Discharge Condition: STABLE Discharge Instructions (ExitCare): Tooth Abscess (DC) Additional Instructions: Follow up with a Dentist Return to ED for any new symptoms Prescriptions: Amoxicillin 500 mg PO TID #21 tab Ibuprofen [Motrin Tab] 600 mg PO Q6 #20 tab Referrals: Jade Johnson, [Primary Care Provider] - Follow up with primary
== END 2017-09-30 09:37 | disposition home or self-care (01) ==
LOC: ED 07:46
DX: K04.7 Periapical abscess without sinus (principal); Z87.891 Personal history of nicotine dependence

== ENCOUNTER 2018-01-11 19:28 | Emergency (ER) | payer MEDICAID ==
[2018-01-11 19:54] VITALS: BMI 21.7
--- NOTE | 2018-01-11 20:03 | ED PDOC ---
Arrival/HPI - General Chief Complaint: Dental Pain Time Seen by Provider: 01/11/18 20:03 Historian: Patient - History of Present Illness Narrative History of Present Illness (Text): 01/11/18 20:03 This 57 yo male presents to this ED c/o right upper dental pain x 2 days. Patient admits similar symptoms in the past. Patient denies sob, cp, weakness, paresthesias, trauma, neck pain, BRYAN, or fever. Time/Duration: Other (see hpi) Context: Home Past Medical History - Provider Review Nursing Documentation Reviewed: Yes - Tetanus Immunization Tetanus Immunization: Unknown - Cardiac Hx Cardiac Disorders: No - Pulmonary Hx Respiratory Disorders: No - Neurological Hx Neurological Disorder: No - HEENT Hx HEENT Disorder: No - Renal Hx Renal Disorder: No - Endocrine/Metabolic Hx Endocrine Disorders: No - Hematological/Oncological Hx Blood Disorders: No - Integumentary Hx Dermatological Disorder: No - Musculoskeletal/Rheumatological Hx Musculoskeletal Disorders: No Hx Falls: No - Gastrointestinal Hx Gastrointestinal Disorders: No - Genitourinary/Gynecological Hx Genitourinary Disorders: No - Psychiatric Hx Psychophysiologic Disorder: No Hx Substance Use: No - Anesthesia Hx Anesthesia: No Hx Anesthesia Reactions: No Hx Malignant Hyperthermia: No Family/Social History - Physician Review Nursing Documentation Reviewed: Yes Family/Social History: Other (noncontributory) Smoking Status: Light Smoker < 10 Cigarettes Daily Hx Alcohol Use: No Hx Substance Use: No Allergies/Home Meds Allergies/Adverse Reactions: Allergies No Known Allergies Allergy (Verified 09/30/17 08:57) Review of Systems - Review of Systems Constitutional: Normal. absent: Fatigue, Weight Change, Fevers Eyes: Normal ENT: Other (dental pain) Respiratory: Normal Cardiovascular: Normal Gastrointestinal: Normal Genitourinary Male: Normal Musculoskeletal: Normal Skin: Normal Neurological: Normal Endocrine: Normal Hemo/Lymphatic: Normal Psychiatric: Normal Physical Exam Vital Signs Temp Pulse Resp BP Pulse Ox 01/11/18 19:53 98.3 F 67 18 122/74 98 Temperature: Afebrile Blood Pressure: Normal Pulse: Regular Respiratory Rate: Normal Appearance: Positive for: Well-Appearing, Non-Toxic, Comfortable Pain Distress: None Mental Status: Positive for: Alert and Oriented X 3 - Systems Exam Head: Present: Atraumatic, Normocephalic Pupils: Present: PERRL Extroacular Muscles: Present: EOMI Conjunctiva: Present: Normal Mouth: Present: Moist Mucous Membranes, Normal Lips, Normal Tounge. No: Drooling, Trismus, Normal Teeth ((+) generalized dental caries, and multiple teeth had been removed. Mild tenderness on gum near where missing tooth #5 area. No dental abscess) Pharnyx: Present: Normal. No: ERYTHEMA, EXUDATE, TONSILS ENLARGED Nose (External): Present: Atraumatic Nose (Internal): Present: Normal Inspection Neck: Present: Normal Range of Motion Respiratory/Chest: Present: Clear to Auscultation, Good Air Exchange. No: Respiratory Distress, Accessory Muscle Use Cardiovascular: Present: Regular Rate and Rhythm, Normal S1, S2. No: Murmurs Abdomen: No: Tenderness, Distention, Peritoneal Signs Back: Present: Normal Inspection Upper Extremity: Present: Normal Inspection. No: Cyanosis, Edema Lower Extremity: Present: Normal Inspection. No: Edema Neurological: Present: GCS=15, CN II-XII Intact, Speech Normal Skin: Present: Warm, Dry, Normal Color. No: Rashes Psychiatric: Present: Alert, Oriented x 3, Normal Insight, Normal Concentration Medical Decision Making ED Course and Treatment: 01/11/18 20:09 Re-evaluation. Patient feels better. Discussed results and plan with patient who expresses understanding. All questions answered and there is agreement with the plan to discharge home with instructions. Patient stable for discharge. Return if symptoms persist or worsen. Patient was recommended to f/u private dentist or to go to [facility] dental clinic. To return to ED if dental pain worsen. Re-evaluation Time: 20:08 Reassessment Condition: Re-examined, Improved Disposition/Present on Arrival - Present on Arrival Any Indicators Present on Arrival: No History of DVT/PE: No History of Uncontrolled Diabetes: No Urinary Catheter: No History of Decub. Ulcer: No History Surgical Site Infection Following: Orthopedic Procedures - Disposition Have Diagnosis and Disposition been Completed?: Yes Diagnosis: Caries involving multiple surfaces of tooth, Pain due to dental caries Disposition: HOME/ ROUTINE Disposition Time: 20:11 Patient Plan: Discharge Patient Problems: Current Active Problems Problem Status Onset Caries involving multiple surfaces of tooth Acute Dental implant pain Acute Condition: GOOD Discharge Instructions (ExitCare): Dental Pain (DC) Additional Instructions: Call private doctor for follow up visit in 1-2 days. Take medication as instructed. Return to emergency if symptoms worsen. Prescriptions: Chlorhexidine 0.12% [Peridex] 15 ml PO BID #1 bottle Clindamycin [Cleocin] 300 mg PO TID #21 cap Famotidine [Pepcid] 40 mg PO DAILY #10 tablet Ibuprofen [Motrin] 600 mg PO Q8 PRN #20 tab PRN Reason: Pain, Severe (8-10) Referrals: PCP,NO [Primary Care Provider] - Follow up with primary [facility] [Outside] - Follow up with primary [facility] [Outside] - Follow up with primary Forms: [employer] (Italian)
[2018-01-11 20:38] VITALS: BP 128/72; PULSE 74; RESP 17; TEMP 98; O2SAT 100
== END 2018-01-11 20:37 | disposition home or self-care (01) ==
LOC: ED 19:28
DX: K02.9 Dental caries, unspecified (principal); F17.210 Nicotine dependence, cigarettes, uncomplicated
CPT/HCPCS: 96372; 99282; J1885